=== PATIENT | female | born 1990 | race Caucasian/White ===

== ENCOUNTER 2020-11-10 01:49 | Observation (INO) | payer OTHER ==
[~2020-11-10] VITALS: Ht 149.9 cm; Wt 83.9 kg
[2020-11-10] MEDS ORDERED: TERBUTALINE SULFATE 1 MG/ML VIAL SUBCUT ONE (03:30)
== END 2020-11-10 03:50 | disposition home or self-care (01) ==
LOC: SPU 01:49
PROVIDERS: ADMIT Obstetrics & Gynecology; ATTEND Obstetrics & Gynecology
DX: O46.93 Antepartum hemorrhage, unspecified, third trimester (principal); Z3A.35 35 weeks gestation of pregnancy; Z88.0 Allergy status to penicillin
CPT/HCPCS: 81002-TC; G0378